=== PATIENT | male | born 1970 | race Caucasian/White ===

== ENCOUNTER 2019-07-11 15:08 | Inpatient (IN) | payer OTHER ==
[~2019-07-11] VITALS: Ht 167.6 cm; Wt 88.9 kg
[2019-08-20] MEDS ORDERED: ATORVASTATIN CA10 MG PO (09:48)
[2019-08-20] MEDS ORDERED: BUSPIRONE HCL7.5 MG PO (09:49)
[2019-08-20] MEDS ORDERED: FINASTERIDE1 MG PO (09:49)
[2019-08-20] MEDS ORDERED: ACID REDUCER20 M1 PO (09:49)
[2019-08-31] MEDS ORDERED: NEURONTIN300 MG PO (09:02)
[2019-08-31] MEDS ORDERED: ULTRAM50 MG PO (09:02)
[2019-08-31] MEDS ORDERED: TYLENOL ARTHRI650 MG PO (09:02)
[2019-08-31] MEDS ORDERED: MIRALAX17 GM PO (09:03)
== END 2019-08-31 10:11 | disposition home or self-care (01) | DRG 354 ==
LOC: SURG 08-28 07:00 → O/R 08-28 09:00 → SURG 08-28 09:00 → O/R 08-28 11:47 → SURH 08-28 19:52
PROVIDERS: ADMIT Surgery
PROC: 0JX83ZZ Transfer Abdomen Subcutaneous Tissue and Fascia, Percutaneous Approach (ICD-10-PCS; 2019-08-28)
PROC: 0WUF4JZ Supplement Abdominal Wall with Synthetic Substitute, Percutaneous Endoscopic Approach (ICD-10-PCS; principal; 2019-08-28 07:00)
DX: K43.0 Incisional hernia with obstruction, without gangrene (principal); Z99.11 Dependence on respirator [ventilator] status; K42.0 Umbilical hernia with obstruction, without gangrene; J31.0 Chronic rhinitis; K21.9 Gastro-esophageal reflux disease without esophagitis; G47.33 Obstructive sleep apnea (adult) (pediatric); E66.09 Other obesity due to excess calories